=== PATIENT | male | born 2000 | race Asian ===

== ENCOUNTER 2024-02-25 11:49 | Emergency (ER) | payer MEDICAID ==
[~2024-02-25] VITALS: Ht 177.8 cm; Wt 77.2 kg
[2024-02-25 11:53] VITALS: O2SAT 99
[2024-02-25] MEDS: SODIUM CHLORIDE 0.9% 1,000 ML IV SCH (12:31)
[2024-02-25] MEDS: METHYLPREDNISOLONE SOD SUCC 125MG/2ML (ACT-O-VIAL) IV ONE (12:32)
[2024-02-25] MEDS: FAMOTIDINE 20MG/2ML VIAL IV ONE (12:32)
[2024-02-25] MEDS: DIPHENHYDRAMINE 50MG/ML VIAL IV ONE (12:32)
[2024-02-25] MEDS ORDERED: P20 PO (13:20)
[2024-02-25 13:30] VITALS: TEMP 98.2
[2024-02-25 14:27] VITALS: BP 112/63; PULSE 63; RESP 16
== END 2024-02-25 14:25 | disposition home or self-care (01) ==
LOC: ER 12:12
DX: T78.40XA Allergy, unspecified, initial encounter (principal); X58.XXXA Exposure to other specified factors, initial encounter
CPT/HCPCS: 82962; 96374; 96375; 99284; J1200; J3490; J2919; Z7610